=== PATIENT | male | born 1965 | race Caucasian/White ===

== ENCOUNTER → 2022-12-25 11:24 | Outpatient (BNVA) | payer MEDICARE, SELFPAY | PROVIDERS: Visit Provider Nurse Practitioner Family | DX: I10 Essential (primary) hypertension (principal) | CPT/HCPCS: 80053; 80061; 82607; 84443; 85025 ==

== ENCOUNTER → 2023-01-30 09:33 | Outpatient (BNVA) | payer MEDICARE, SELFPAY | PROVIDERS: Visit Provider Internal Medicine Cardiovascular Disease | DX: Z86.74 Personal history of sudden cardiac arrest (principal); I25.10 Atherosclerotic heart disease of native coronary artery without angina pectoris; I10 Essential (primary) hypertension; E78.5 Hyperlipidemia, unspecified; K21.9 Gastro-esophageal reflux disease without esophagitis; F17.210 Nicotine dependence, cigarettes, uncomplicated; R94.31 Abnormal electrocardiogram [ECG] [EKG] | CPT/HCPCS: 93005; 99204 ==

== ENCOUNTER 2023-02-14 12:41 | Outpatient (CLI) | payer MEDICARE, SELFPAY ==
--- NOTE | 2023-02-14 13:00 | USCV_ITS ---
Claudio Mota Age: 57 Gender: M : 1965 Exam Date: 02/14/2023 12:57 Ordering Phys: Billie Mehta MD [email or web address]) Technologist: Saloni Jack [place] [facility] [place]: Exertional shortness of breath BP: / HR: 73 Rhythm: Sinus Technical Quality: Adequate MEASUREMENTS (Male / Female) Normal Values 2D ECHO LV Diastolic Diameter PLAX 4.2 cm 4.2 - 5.9 / 3.9 - 5.3 cm LV Systolic Diameter PLAX 3.2 cm IVS Diastolic Thickness 1.4 cm 0.6 - 1.0 / 0.6 - 0.9 cm IVS Systolic Thickness 1.4 cm LVPW Diastolic Thickness 1.2 cm 0.6 - 1.0 / 0.6 - 0.9 cm LVPW Systolic Thickness 2.1 cm LVOT Diameter 2.1 cm LV Ejection Fraction 2D Teich 46.3 % LV Ejection Fraction MOD 2C 19.9 % LV Ejection Fraction 2C AL 22.3 % LA Diameter 2.7 cm LA Width 3.5 cm LA Height 4.5 cm RA Width 3.5 cm RA Height 3.8 cm Aorta at Sinotubular Diameter 3.0 cm IVC Diameter 1.1 cm M-MODE Aortic Annulus Diameter 2.6 cm LA Ao Ratio MM 1.0 MV E Point Septal Separation 0.8 cm DOPPLER AV Peak Velocity 127.0 cm/s LVOT Peak Velocity 70.0 cm/s AV Area Cont Eq vti 1.5 cm squared AV Area Cont Eq pk 1.9 cm squared MV E' Velocity 6.0 cm/s PV Peak Velocity 95.0 cm/s RV Acceleration Time 0.1 s RV Ejection Time 0.3 s RV AcT/ET 0.4 FINDINGS Left Ventricle Normal left ventricular cavity size. Moderately decreased left ventricular systolic function. Moderately decreased left ventricular systolic function. Left ventricular ejection fraction is estimated at 30-35 %. Global left ventricular hypokinesis. Abnormal septal motion consistent with pacemaker. Right Ventricle Normal right ventricular size and systolic function. Pacemaker wire visualized in the right ventricle. Right Atrium Normal right atrial size. Left Atrium Normal left atrial size. Mitral Valve Mildly thickened mitral valve. Mild bowing of anterior mitral leaflet. No mitral valve stenosis. Trace mitral valve regurgitation. Aortic Valve Structurally normal trileaflet aortic valve. No aortic valve stenosis. No aortic valve regurgitation. Tricuspid Valve Structurally normal tricuspid valve. Trace tricuspid valve regurgitation. Pulmonic Valve Pulmonic valve not well visualized. Pericardium No pericardial effusion. Aorta Normal size aortic root and proximal ascending aorta. IVC Normal IVC dimension with >50% respiratory change of the inferior vena cava. CONCLUSIONS 1. Normal left ventricular cavity size. Moderately decreased left ventricular systolic function. Moderately decreased left ventricular systolic function. Left ventricular ejection fraction is estimated at 30-35 %. Global left ventricular hypokinesis. 2. No prior similar studies to compare. Billie Mehta MD (Electronically Signed) Final Date: 22 February 2023 03:00 S
--- NOTE | 2023-02-14 13:45 | USCV_ITS ---
MotaClaudio Age: 57 Gender: M : 1965 Exam Date: 02/14/2023 13:24 Ordering Phys: Gerson Key Technologist: Franklin Chacon [place] [facility] [place]: leg pain RIGHT LEFT Brachial 546765.7 mmHg Brachial 130.00 mmHg 0 Pressure (mmHg) Waveform Pressure (mmHg) Waveform 145.00 MOBILE APPLICATION ENGINEER 76.00 123.00 DPA 91.00 0.95 Ankle/Brachial Index 0.70 102.00 Pre-Exercise Toe Pressure 76.00 0.78 Pre-Exercise Toe/Brachial Index 0.58 FINDINGS Resting ELYSSA 0.95 on the right side and 0.7 on the left Resting TBI of 0.78 on the right and 0.58 on the left CONCLUSIONS 1. Normal resting ELYSSA and TBI on the right side suggesting no significant arterial obstruction 2. Abnormal resting ELYSSA and TBI on the left side suggesting moderate peripheral artery disease Dr Gerson Key MD [facility] (Electronically Signed) Final Date: 19 February 2023 08:16 S
== END 2023-02-14 12:42 | disposition home or self-care (01) ==
PROVIDERS: PCP Nurse Practitioner Family; Visit Provider Internal Medicine Cardiovascular Disease
DX: I73.9 Peripheral vascular disease, unspecified (principal); R06.02 Shortness of breath
CPT/HCPCS: 93306; 93922

== ENCOUNTER 2023-03-12 06:53 | Outpatient (CLI) | payer MEDICARE, SELFPAY ==
--- NOTE | 2023-03-12 07:06 | ECG_ITS ---
[facility] Test Date: 2023-03-12 Pat Name: Claudio Mota Department: Room: Gender: Male Chaplain Resident: : 1965 Requested By: Billie Mehta Order Number: [id number] Mitch MD: Billie Mehta M.D. Interpretive Statements NAME OF STUDY: LEXISCAN SESTAMIBI STRESS TEST INDICATION: CP/LOW EF PROCEDURE: At the baseline, the blood pressure was 153/87 mmHg with a heart rate of 88 bpm. The electrocardiogram showed sinus rhythm, right axis deviation with intraventricular conduction delay (LBBB like morphology). The Lexiscan was infused over a period of 20 seconds. A total of 0.4 milligrams of Lexiscan was infused. The stress phase was continued for a total of 5 minutes. Heart rate at the end of the stress phase was 88 bpm with a blood pressure 152/92 mm of Hg. The EKG at the peak infusion revealed sinus rhythm with intraventricular conduction delay (LBBB like morphology). Sestamibi was injected 20 seconds after the Lexiscan infusion. Blood pressure at the end of the recovery phase was 155/89 mmHg with a heart rate of 93 bpm. Per minute. CONCLUSION: 1. Non diagnostic EKG changes with the LexiScan infusion due to intraventricular conduction delay (LBBB like morphology). 2. No LexiScan induced chest pain or cardiac arrhythmia. 3. Normal blood pressure and heart rate response. 4. Sestamibi/sestamibi perfusion scan pending; see separate report. Electronically Signed On 03-18-2023 16:48:10 CDT by Billie Mehta M.D. [id number]
--- NOTE | 2023-03-12 07:06 | NMCV_ITS ---
NM elder perf SPECT r/s* [id number] Claudio Mota Age: 57 Gender: M : 1965 Exam Date: 03/12/2023 07:06 Ordering Phys: Billie Mehta MD ([email or web address]) Technologist: MINE Shelton Exam Location: [facility] [place] Indications: CHEST PAIN, ATHEROSCLEROTIC HEART DISEASE, HISTORY OF SUDDEN CARDIAC ARREST STRESS TEST Please see separate stress test report in [facility] for full findings IMAGE PROTOCOL Rest/Stress 1 Lexiscan Day Radiopharmaceutical Dose (mCi) Administration Site Administered by Rest: Tc-99m 10.7 IV MINE Tay Sestamibi Stress:Tc-99m 32.6 IV MINE Tay Sestamibi Rest: 12-Mar-2023 30 Discovery 630 Stress: 12-Mar-2023 60 Discovery 630 0.4mg Lexiscan. Images obtained in supine and prone position. SPECT RESULTS Technical Quality: Excellent Raw Data Analysis: Normal Image Corrections: No attenuation or motion correction applied Summed Stress Score: 19 Summed Rest Score: 2 Summed Difference Score: 17 PERFUSION FINDINGS Large size perfusion abnormality of moderate severity of basal to mid inferolateral mid anterolateral apical lateral, mid to apical anterior and apical chaidez on stress images. FUNCTIONAL RESULTS (calculated via Gated SPECT) Stress Image LV EF (%): 42 Stress EDV (mL):242 TID: 1.11 Stress ESV (mL):141 FUNCTIONAL FINDINGS: The left ventricle is normal in size. Transient Ischemia Dilatation of 1.1. The left ventricular ejection fraction is mildly reduced with a value of 42%. There is global hypokinesis. Markedly increased end-diastolic and end-systolic volumes. IMPRESSIONS 1. Large sized perfusion abnormality of moderate severity of basal to mid inferolateral, mid anterolateral, apical lateral, mid to apical anterior and apical chaidez. 2. This likely represents large area of ischemia in left anterior descending/circumflex artery territory. 3. The left ventricular ejection fraction is mildly reduced with a value of 42%. There is global hypokinesis. 4. No prior similar studies to compare. Billie Mehta MD (Electronically Signed) Final Date: 18 March 2023 16:44 S
[2023-03-12 07:18] VITALS: BMI 29.3
[2023-03-12] MEDS: regadenoson 0.4 Mg/5 ml Syringe IVP (08:37)
[2023-03-12 08:56] VITALS: BP 152/92; PULSE 90
== END 2023-03-12 06:54 | disposition home or self-care (01) ==
LOC: CDL 06:54
PROVIDERS: PCP Nurse Practitioner Family; Visit Provider Internal Medicine Cardiovascular Disease
DX: R07.9 Chest pain, unspecified (principal); I50.9 Heart failure, unspecified; Z86.74 Personal history of sudden cardiac arrest
CPT/HCPCS: 36415; 78452; 93017; 96374; A9500; J2785

== ENCOUNTER → 2023-03-27 12:55 | Outpatient (BNVA) | payer MEDICARE, SELFPAY | PROVIDERS: PCP Nurse Practitioner Family; Visit Provider Nurse Practitioner Family | DX: I25.10 Atherosclerotic heart disease of native coronary artery without angina pectoris (principal); I10 Essential (primary) hypertension; F17.210 Nicotine dependence, cigarettes, uncomplicated | CPT/HCPCS: 99214 ==

== ENCOUNTER 2023-04-11 05:48 | Outpatient (CLI) | payer MEDICARE, SELFPAY ==
[2023-04-11] VITALS (16 sets, daily range): BP systolic 117–158; BP diastolic 62–101; PULSE 61–73; RESP 0–18; TEMP 36.6; O2SAT 98–100; BMI 29.5
--- NOTE | 2023-04-11 06:00 | XACV_ITS ---
Exam Room: 2 Ht: 175 cm Wt: 91 kg BSA: 2.12 m2 Gender: Male : 1965 Exam Priority: Routine Procedure(s): Procedure Description: Diagnostic procedure Procedure Description: Left Heart Catheterization Procedure Description: Left ventriculography Procedure Description: Aortogram Procedure Description: Venous Graft Catheterization Procedure Description: Coronary Angiography Diagnostic Cath Status: Elective Diagnostic Findings * INDICATION: Chest pain/ abnormal stress test. * Mid Circumflex: severe 90% stenosis, PASCUAL: 3 flow. OM is occluded and is supplied by collateral blood flow from the SVG to RCA. * SVG to RCA is patent. * Aortogram performed to assess PAD for possible support device insertion in future. Left common femoral artery has moderte disease. Ostial left SFA has a significant 70-80% stenosis. Right lower extremity has mild to moderate diffuse disease in common femoral artery and external iliac arteries. * Left Main: significant 80% stenosis, PASCUAL: 3 flow. * Mid Left Anterior Descending: obstructive 70% stenosis, PASCUAL: 3 flow. * Proximal Right Coronary Artery: total occlusion, PASCUAL: 0 flow. * Coronary angiography shows right dominance. PCI Indication: Other Conclusions 1. Severe left main stenosis. Severe stenosis of 2. mid left circumflex artery. 3. We will refer to 4. CT surgery team for possible CABG. 5. If not a surgical candidate, we can proceed with PCI of left main artery 6. and left circumflex artery.. 7. Patient has prior CABG. 8. Moderate left ventricular systolic dysfunction. Ejection fraction of 35%. Recommendations * Aggressive risk factor modification. * Close follow up with cardiology as outpatient. Interventional RX Recommendation: CABG Diagnostic RX Recommendation: CABG Anticoagulation: Heparin Ventriculography Ejection Fraction: 35.0 % Pressures Phase:Rest AO : 110 / 82 ( 95 ) @ 9:07:00 AM 126 / 88 ( 106 ) @ 9:19:00 AM 146 / 76 ( 103 ) @ 9:25:00 AM 139 / 67 ( 94 ) @ 9:27:00 AM LV : 148 / 1 / 17 @ 9:23:00 AM 140 / 3 / 19 @ 9:24:00 AM 141 / 4 / 19 @ 9:25:00 AM Valves Phase:DefaultPhase AV : 0.0 @ 8:43:21 AM 0.0 @ 8:43:21 AM AV Mean Gradient: 0.0 @ 8:43:21 AM Clinical Evaluation EBL: 5mL-10mL Procedural Details Procedure Consent Obtained. Admit Source: Out Patient. Pre-Procedure Time Out. Identified patient by full name and date of as verbalized by the patient/guarantor. Does the consent match the physician's order: Yes. Accurate & Complete Informed Consent: Yes. Inpatient/Outpatient History & Physical on Chart: Yes. If H&P is completed, is and addenduem needed: No; If yes, is the addendum complete: N/A. Visualize and Verify Site with Patient/Guarantor: N/A. Relevant Radiology Images available: N/A. The risks, benefits, and alternatives of sedation and/or procedure were discussed by physician. The patient agrees to continue. Procedure started. [facility] Clinical Fraility Score: 4: Vulnerable. 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 Chest Pain Symptom Assessment: Typical Angina Symptoms. Correct patient, site and procedure confirmed by cath team. PERRLA. Strong, equal hand forming press operator bilaterally. Lungs clear x 5 lobes. IV Site on Arrival: 20 gauge in the right anticubital. IV Fluids: 0.9% NaCl at KVO. 0 mL infused prior to hatchery laborer. Pre Procedural Pulses: bilateral posterior tibial was Doppled. Pre Procedural Pulses: bilateral dorsalis pedis was Doppled. Pre Procedural Pulses: bilateral radial was 3+. Oxygen started at 2liters/min via nasal canula. right groin was prepped with chloroprep then draped in the usual sterile fashion. bilateral groins was prepped with chloroprep then draped in the usual sterile fashion. Physician notified. Baseline sample Acquired. HR: 56 BPM. Physician arrived. Physician scrubbed in. Immediate Pre-Procedure Time Out. Correct Patient: Yes; Correct Procedure: Yes; Correct Site: Yes; Correct Patient Position: Yes; Correct Supplies: Yes; Dried Flammable Prep: Yes; Blood Products Available: N/A;. Lidocaine 1% infiltrated to the right radial. Arterial access obtained. A 6 [place] TIG catheter in over wire. Catheter removed over the exchange wire. A 5 [place] JL3.5 catheter in over wire. Multiple views taken of left coronary artery. Catheter removed over the exchange wire. A 5 [place] JR5 catheter in over wire. Catheter removed over the exchange wire. A 5 [place] AL1 catheter in over wire. SVG's to RCA visualized and patent. Catheter removed over the exchange wire. A 5 [place] Angled Pig catheter in over wire. EDP Sample taken: LV 148/1,17; HR: 66 BPM; SpO2: 100%. LV gram performed in MAK @ 10 mL/second for a total of 30 mL. EDP Sample taken: LV 140/3,19; HR: 62 BPM; SpO2: 100%. Pullback taken: LV 141/4,19; AO 146/76(103); Mean: 0mmHg, Peak to Peak: 0mmHg, SEP: 6sec/min; HR: 63 BPM; SpO2: 100%. Catherter redirected to the descending aorta. Aortogram performed in AP @ 10 mL/second for a total of 30 mL. Aortogram performed in AP @ 10 mL/second for a total of 30 mL in DSA. Catheter removed over the exchange wire. A 5 [place] Straight Pig catheter in over wire, 125 cm. Right common iliac selected and arteriogram with runoff performed @ 10 mL/sec for a total of 30 mL in DSA. Catheter removed over the exchange wire. Post Procedure: Pulses reassessed and unchanged. PERRLA. Strong, equal hand forming press operator bilaterally. No VTE prophylaxis required. Medication's Wasted: Lidocaine 1% = 9 mL. Medication's Wasted: Nitro = 49.8 mg. Medication's Wasted: Heparin = 3000 units. Total IV fluids: 75 mL. A TR Band was successful obtaining hemostatsis at the Right Radial artery insertion site. Post-op diagnosis: severe left main stenosis, severe left circumflex stenosis. Complications: none. Estimated blood loss: 5mL-10mL. Responsiveness - Normal response to verbal stimuli; alert and oriented, PERRLA. Airway - Unaffected, no intervention required; spontaneous ventilation. Circulation: W/N/L, pulses unchanged. Nausea/Vomiting: No. Procedure completed. Patient transferred by wheelchair to CPRU. Vital chart was stopped. Access Site Site: Right Radial artery Sheath Size: 6 Fr Hemostasis Method: TR Band Hemostasis Success: Successful Procedure Medications Start: 7:58 AM Stop: 7:58 AM Medication: Versed Amount: 1 mg Route: I.V. Start: 7:58 AM Stop: 7:58 AM Medication: Fentanyl Amount: 50 mcg Route: I.V. Start: 8:04 AM Stop: 8:04 AM Medication: Nitrogylcerin Amount: 200 mcg Route: I.A. Start: 8:06 AM Stop: 8:06 AM Medication: Heparin Amount: 3000 units Route: I.V. Start: 8:12 AM Stop: 8:12 AM Medication: Versed Amount: 1 mg Route: I.V. Start: 8:12 AM Stop: 8:12 AM Medication: Fentanyl Amount: 50 mcg Route: I.V. I, the attending physician, have reviewed and verified all procedure medications. Yes, all medications given per verbal order History/Risk Factors Hypertension: Yes Dyslipidemia: Yes Peripheral Arterial Disease (PAD): No Myocardial Infarction (MN): Yes Obesity: No Tobacco Use: Current/Recent(w/in 1 year) Prior Interventions PCI: Yes CABG: Yes Valve Surgery: No Report Signatures Finalized by William Ryder MD on 04/11/2023 12:38 PM
[2023-04-11 06:16] LABS: Basophils # 0.2 10^3/uL (0.0-0.1); Basophils % 1.7 %; Eosinophils # 0.5 10^3/uL (0.0-0.8); Eosinophils % 5.2 %; Hematocrit 47.2 % (37-53); Lymphocytes # 4.1 10^3/uL (0.8-4.8); Lymphocytes % 40.8 %; Mean Corpuscular HGB Conc 34.3 g/dL (30-55); Mean Corpuscular Hemoglobin 32.1 pg (27-33); Mean Corpuscular Volume 93.5 fl (82-101); Mean Platelet Volume 11.8 fL (7.4-10.4); Monocytes # 1.2 10^3/uL (0.2-0.9); Monocytes % 12.1 %; Neutrophils % 39.9 %; Nucleated Red Blood Cells % 0 %; Platelet Count 157 10^3/cmm (157-399); Red Blood Count 5.05 10^6/uL (3.85-5.65); Red Cell Distribution Width 11.9 % (12.1-15.1); White Blood Count 10.01 10^3/uL (3.29-11.43)
[2023-04-11] MEDS: diphenhydrAMINE 50 mg Capsule PO (06:24)
[2023-04-11 06:34] LABS: Blood Urea Nitrogen 10 mg/dL (6-20); Calcium 9.3 mg/dL (8.5-10.5); Carbon Dioxide 28 mmol/L (22-29); Chloride 102 mmol/L (98-107); Glomerular Filtration Rate 87.6 mL/min (90-130); Glucose 100 mg/dL (65-115); INR 0.89 (0.8-1.2); Osmolality Calculated 285 mOsm/kg (285-295); Sodium 138 mmol/L (136-145)
[2023-04-11 06:39] LABS: Anion Gap 12.4 (5-19); Potassium 4.4 mmol/L (3.5-5.1)
--- NOTE | 2023-04-11 07:54 | P.HPUD_ITS ---
Surgery/Procedure H&P Update DATE OF PROCEDURE: April 11, 2023 DATE H&P PERFORMED: 03/27/23 H&P UPDATE INFORMATION: I have reviewed H&P completed within last 30 days, I have examined patient prior to procedure and No changes to prior documentation PREOP DIAGNOSIS: Chest pain/abnormal stress test PRIMARY INDICATION FOR PROCEDURE: Chest pain/abnormal stress test PLANNED PROCEDURE: Operation Date: 04/11/23 07:00 Proposed Procedures p [facility] w /w/o 33839,I25.10,R94.39(Left) - William Ryder M.D Possible percutaneous coronary intervention PATIENT REASSESSED PRIOR TO SEDATION, WITH NO CHANGE NOTED: Yes PHYSICAL EXAM: alert, oriented x 3, clear to auscultation bilaterally and regular rate & rhythm AIRWAY EVAL/ANESTHESIA PLAN: normal airway, ASA III, Local Anesthesia, Risks, benefits & alternatives of sedation and/or procedure discussed and Patient agrees to continue as planned ADDITIONAL INFORMATION: Moderate sedation
--- NOTE | 2023-04-11 08:45 | PC.NURSE ---
Post Cath Fluid Clarification Dr. Ryder at bedside speaking with family. Verbal orders for NS to be administered at 75ml/hr until discharge home. Infusion continued from NS bag obtained in director of cardiac cath lab.
--- NOTE | 2023-04-11 12:55 | PC.NURSE ---
TR BAND 0945 - 2ml air removed from Right radial TR band, site asymptomatic. No signs of bleeding or hematoma. Radial pulse palpable. 1010 - 2ml air removed from right radial TR band, site asymptomatic . No signs of bleeding or hematoma. Radial pulse palpable. 1030 - 3ml air removed from right radial TR band, site asymptomatic . No signs of bleeding or hematoma. Radial pulse palpable. 1045 - 3 ml air removed from right radial TR band, site asymptomatic . No signs of bleeding or hematoma. Radial pulse palpable. 1105 - 3 ml air removed from right radial TR band, site asymptomatic . No signs of bleeding or hematoma. Radial pulse palpable. 1115 - 2 ml air removed from right radial TR band, site asymptomatic . No signs of bleeding or hematoma. Radial pulse palpable. 1130 - 2 ml air removed from right radial TR band, site asymptomatic . No signs of bleeding or hematoma. Radial pulse palpable.
--- NOTE | 2023-04-11 12:59 | PC.NURSE ---
Patient discharged home. Printed discharged instructions received and went over verbally. Patient and verbalized understanding of instructions. Right radial site dressing clean dry and intact. No signs of bleeding or hematoma.
== END 2023-04-11 12:55 | disposition home or self-care (01) ==
PROVIDERS: PCP Nurse Practitioner Family; Visit Provider Internal Medicine
DX: I25.10 Atherosclerotic heart disease of native coronary artery without angina pectoris (principal); Z79.82 Long term (current) use of aspirin; K21.9 Gastro-esophageal reflux disease without esophagitis; E78.5 Hyperlipidemia, unspecified; I10 Essential (primary) hypertension; F17.210 Nicotine dependence, cigarettes, uncomplicated
CPT/HCPCS: 36415; 75625; 80048; 85025; 85610; 93459; 96361; 96365; 96367; 99152; 99153; C1769; C1887; C1894; J1644; J2250; J3010; J3490; J7030; Q0163; Q9967

== ENCOUNTER → 2023-04-25 13:17 | Outpatient (BNVA) | payer MEDICARE, SELFPAY | PROVIDERS: PCP Nurse Practitioner Family; Visit Provider Nurse Practitioner Family | DX: I25.10 Atherosclerotic heart disease of native coronary artery without angina pectoris (principal); I10 Essential (primary) hypertension; R94.39 Abnormal result of other cardiovascular function study; Z86.74 Personal history of sudden cardiac arrest; Z09 Encounter for follow-up examination after completed treatment for conditions other than malignant neoplasm; F17.210 Nicotine dependence, cigarettes, uncomplicated | CPT/HCPCS: 36415; 80048; 85025; 85610; 99214 ==

== ENCOUNTER 2023-05-16 08:47 | Outpatient (CLI) | payer MEDICARE, SELFPAY ==
[2023-05-16] VITALS (36 sets, daily range): BP systolic 132–160; BP diastolic 83–98; PULSE 61–90; RESP 6–16; TEMP 36.8; O2SAT 92–100; BMI 29.5
--- NOTE | 2023-05-16 09:00 | XACV_ITS ---
Exam Room: [facility] Ht: 175 cm Wt: 91 kg BSA: 2.12 m2 Gender: Male : 1965 Any Known Allergies: Other Exam Priority: Routine Indication(s): - Progressive angina Procedure(s): Procedure Description: Diagnostic procedure Procedure Description: PCI procedure Procedure Description: Left Heart Catheterization Procedure Description: Coronary IVUS Procedure Description: Drug Eluting Coronary Stent Procedure Description: PTCA Procedure Description: Miscellaneous Procedure Description: ACT Procedure Description: Coronary Angiography Diagnostic Cath Status: Elective Diagnostic Findings * INDICATION: Patient underwent coronary angiogram last month that showed patent SVG to RCA, severe left circumflex artery stenosis, moderate to severe mid LAD stenosis and significant left main artery stenosis. He was sent to [place] for redo CABG evaluation. He was considered high risk for second CABG surgery. Plan for PCI of left circumflex artery. We will perform IVUS guided PCI of left main artery. Plan for IVUS of the mid LAD stenosis and decision about intervention based on that. Patient has PAD and prior complication with PCI done several years ago at outside hospital. I had a clear discussion with patient and family about high risk nature of the procedure and the risks associated with it. They understand the risks and benefits and want to proceed. Patient already loaded with aspirin and Plavix. * Right Coronary Artery not injected. SVG to RCA not injected. * This is a staged interventional procedure. For full diagnostic report, please refer to procedure report from 04/11/2023. * Left Main: significant 80% stenosis, PASCUAL: 3 flow. * Mid Left Anterior Descending: obstructive 70% stenosis, PASCUAL: 3 flow. * Mid Circumflex to Mid Circumflex: critical 95% stenosis, PASCUAL: 3 flow. * Coronary angiography shows right dominance. PCI Status: Elective PCI Indication: Other Interventional Findings * PROCEDURE DETAIL: Initally we attempted to perform PCI via radial access but because of anatomy, had difficulty with selective engagement of the guide. Access was then switched to right common femoral artery. We used XB 3.5 guide catheter to engage hussain left main artery. 0.014 runthrough guidewire was used to cross the LAD stenosis. IVUS was performed that showed significant stenosis of the mid LAD (could not completely cross the lesion). MLA of the initial part of lesion till where IVUS catheter was advanced was 3.8mm2. MLA of the left main artery was 5.1mm2.We then advanced the runthrough guidewire to left circumflex artery and crossed the critical stenosis. We predilated the stenosis with 2.5x12mm semicompliant balloon. This was followed by placement of 2.04l47fc Resolute joe MARIMAR. We then turned our attention to mid LAD stenosis. We predilated the lesion with 2.5x12mm semi compliant balloon. This was followed by predilation with 3.0 x 12 mm NC balloon. Advancing stent was still difficult and guide liner was used to put a stent in the mid LAD. We placed a 3.0x18mm Resolute joe MARIMAR in the mid LAD. We then predilated the left main stenosis with 3.0x12mm NC balloon. This was followed by placement of 3.0x15 resolute joe MARIMAR. we then performed IVUS that showed an area of underexpansion. This was expanded well with 3.75x8mm NC balloon. At this time, final angiogram was performed that showed TIMI3 flow,no residual stenosis. Guidewire and guidecatheter were removed. 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 * Left Main: 80% stenosis treated with a MDT NC EUPHORA RX [id number] BALLOON, MDT R JOE 3.0X15 MARIMAR, and MDT NC EUPHORA RX [id number] BALLOON. 0% residual stenosis, PASCUAL: 3 flow. * Mid Left Anterior Descendin% stenosis treated with a AB TREK 2.50X12 RX BALLOON, MDT NC EUPHORA RX 3.66X67DA BALLOON, and MDT R JOE 3.0X18 MARIMAR. 0% residual stenosis, PASCUAL: 3 flow. * Mid Circumflex to Mid Circumflex: 95% stenosis treated with a AB TREK 2.50X12 RX BALLOON, and MDT R JOE 2.75X15 MARIMAR. 0% residual stenosis, PASCUAL: 3 flow. Conclusions 1. Severe multivessel coronary artery disease. After CT surgery evaluation and heart team discussion, decision made to proceed with multivessel PCI including LAD, Left main artery and left circumflex artery. 2. Severe left main artery stenosis s/p PCI with 1 stent. Severe mid LAD stenosis s/p PCI with 1 stent. Critical mid left circumflex artery stenosis s/p successful revascularization with 1 stent. 3. Patient has prior CABG. 4. Left Main was treated with a Balloon, Drug Eluting Stent, and Balloon. 5. Mid Left Anterior Descending was treated with a Balloon, Balloon, and Drug Eluting Stent. 6. Mid Circumflex to Mid Circumflex was treated with a Balloon, and Drug Eluting Stent. Recommendations * Dual antiplatelet therapy at least 1 year. * High intensity statin therapy. * Outpatient cardiology follow up in 1 week. Interventional RX Recommendation: PCI w/o planned CABG Diagnostic RX Recommendation: PCI w/o planned CABG Anticoagulation: Heparin Pressures Phase:Rest AO : 148 / 81 ( 106 ) @ 11:36:00 AM 150 / 83 ( 107 ) @ 11:36:00 AM 105 / 67 ( 84 ) @ 11:48:00 AM 120 / 87 ( 100 ) @ 12:08:00 PM 86 / 48 ( 64 ) @ 12:27:00 PM 130 / 96 ( 113 ) @ 12:27:00 PM 150 / 97 ( 120 ) @ 12:28:00 PM 279 / 153 ( 111 ) @ 12:30:00 PM 126 / 84 ( 104 ) @ 12:30:00 PM 99 / 69 ( 52 ) @ 12:35:00 PM 85 / 59 ( 71 ) @ 12:36:00 PM 111 / 80 ( 95 ) @ 12:36:00 PM 124 / 94 ( 109 ) @ 12:36:00 PM 138 / 91 ( 112 ) @ 12:37:00 PM LV : 157 / 5 / 17 @ 11:36:00 AM 156 / 6 / 17 @ 11:36:00 AM Valves Phase:DefaultPhase AV : 8.0 @ 8:41:05 AM 8.0 @ 8:41:05 AM AV Mean Gradient: 11.0 @ 8:41:05 AM Clinical Evaluation EBL: 5mL-10mL Procedural Details Procedure Consent Obtained. Admit Source: Out Patient. Current Diagnosis : Unstable angina. [facility] Clinical Fraility Score: 4: Vulnerable. Metalizing Supervisor Indications: Worsening Angina. Chest Pain Symptom Assessment: Typical Angina Symptoms. Cardiovascular Instability: No, stable. Pre-Procedure Time Out. Identified patient by full name and date of as verbalized by the patient/guarantor. Does the consent match the physician's order: Yes. Accurate & Complete Informed Consent: Yes. Inpatient/Outpatient History & Physical on Chart: Yes. If H&P is completed, is and addenduem needed: No; If yes, is the addendum complete: N/A. Visualize and Verify Site with Patient/Guarantor: N/A. Relevant Radiology Images available: Yes. The risks, benefits, and alternatives of sedation and/or procedure were discussed by physician. The patient agrees to continue. Procedure started. Correct patient, site and procedure confirmed by cath team. Current diagnosis: Unstable angina; worsening angina; multiple vessel cad. PERRLA. Strong, equal hand mate first bilaterally. Lungs clear x 5 lobes. IV Site on Arrival: 20 gauge in the left anticubital. IV Fluids: 0.9% NaCl at KVO. 0 mL infused prior to earth science laboratory technician. Pre Procedural Pulses: bilateral posterior tibial was Doppled. Pre Procedural Pulses: bilateral dorsalis pedis was Doppled. Pre Procedural Pulses: bilateral radial was 3+. Oxygen started at 3liters/min via nasal canula. right groin was prepped with chloroprep then draped in the usual sterile fashion. right radial was prepped with chloroprep then draped in the usual sterile fashion. Physician notified. Baseline sample Acquired. HR: 57 BPM. Family updated by MD prior to arrival. Physician arrived. Physician scrubbed in. Immediate Pre-Procedure Time Out. Correct Patient: Yes; Correct Procedure: Yes; Correct Site: Yes; Correct Patient Position: Yes; Correct Supplies: Yes; Dried Flammable Prep: Yes; Blood Products Available: N/A;. Lidocaine 1% infiltrated to the right radial. Ultrasound used for guided arterial access by MD. Arterial access obtained with micropuncture set. Lidocaine 1% infiltrated to the right radial. Arterial access obtained. A 6 estonian Angled Pig catheter in over the exchange wire. EDP Sample taken: LV 157/5,17; HR: 63 BPM; SpO2: 100%. Pullback taken: LV 156/6,17; AO 148/81(106); Mean: 11mmHg, Peak to Peak: 8mmHg, SEP: 19sec/min; HR: 63 BPM; SpO2: 100%. Catheter removed over the exchange wire. 6 estonian XB 3.5 guide catheter was inserted over the wire. Unable to seat the guide in the LCS. Guide catheter out over the wire. Sheath upsized to a 6 Fr. A new 6 fr XB 3.5 GUIDE inserted through the femoral access. Guide seated in the LCS. Multiple views taken of left coronary artery. Runthrough guidewire was advanced through the guide catheter to lesion in the mid LAD. IVUS catheter inserted over the runthrough wire. IVUS mesurments of LAD and LEFT MAIN obtained. IVUS catheter out. Runthrough wire redirected down the Left Circumflex artery. Guidewire advanced across lesion. Inflation number : 1 A AB TREK 2.50X12 RX BALLOON was prepped and advanced across the Mid CX , then inflated to 8 DRAKE for 0:06 seconds. Inflation number: 2 The AB TREK 2.50X12 RX BALLOON was reinflated across the Mid CX, to 12 DRAKE for 0:10 seconds. Balloon out over the wire. Results checked. Inflation Number : 3 A [place] JOE 2.75X15 MARIMAR -Lot Number# [id number] was prepped and advanced across the Mid CX. The stent was deployed at 12 DRAKE for 0:16 seconds. EXP 03/23/2024. Results checked. Stent balloon out over the wire. Runthrough wire redirected down the LAD. Guidewire advanced across lesion. ACT drawn. Results Out of range high seconds. Therapeutic limits - pre-heparin administration 90-150 seconds and monitoring heparin during a vascular procedure >250 seconds. Inflation number: 1 The AB TREK 2.50X12 RX BALLOON was reinflated across the Mid LAD, to 8 DRAKE for 0:09 seconds. Inflation number: 2 The AB TREK 2.50X12 RX BALLOON was reinflated across the Mid LAD, to 10 DRAKE for 0:19 seconds. Results checked. Balloon out over the wire. Inflation number : 3 A MDT NC EUPHORA RX 3.76T00FP BALLOON was prepped and advanced across the Mid LAD , then inflated to 12 DRAKE for 0:07 seconds. Inflation number: 4 The MDT NC EUPHORA RX 3.28A56FY BALLOON was reinflated across the Mid LAD, to 12 DRAKE for 0:13 seconds. Balloon out over the wire. 3.0 x 18 MARIMAR stent inserted. Unable to cross. Removed intact over the wire. 2ND runthrough wire inserted as crossing support. 2nd guidwire advanced across the lesion in the mid LAD. 3.0 x 18 MARIMAR stent inserted. Unable to cross. Removed intact over the wire. 2nd runthrough out over the wire. 6 FR guidliner inserted over the wire. Inflation Number : 5 A MDT R JOE 3.0X18 MARIMAR -Lot Number# [id number] was prepped and advanced across the Mid LAD. The stent was deployed at 12 DRAKE for 0:17 seconds. EXP: 01/07/26. Results checked. Stent balloon out over the wire. Guidliner out. Results checked. ACT drawn. Results Out of range high seconds. Therapeutic limits - pre-heparin administration 90-150 seconds and monitoring heparin during a vascular procedure >250 seconds. Inflation number: 1 The MDT NC EUPHORA RX 3.29K52MS BALLOON was reinflated across the LMCA, to 12 DRAKE for 0:16 seconds. Balloon out over the wire. Inflation Number : 2 A MDT R JOE 3.0X15 MARIMAR -Lot Number# [id number] was prepped and advanced across the LMCA. The stent was deployed at 12 DRAKE for 0:17 seconds. EXP 03/22/2024. Stent balloon out over the wire. Results checked. Results checked. IVUS catheter inserted over the wire. IVUS of lad and left main performed. Inflation number : 3 A MDT NC EUPHORA RX 3.57F55DS BALLOON was prepped and advanced across the LMCA , then inflated to 12 DRAKE for 0:14 seconds. Inflation number: 4 The MDT NC EUPHORA RX 3.89Y49TM BALLOON was reinflated across the LMCA, to 12 DRAKE for 0:12 seconds. Inflation number: 5 The MDT NC EUPHORA RX 3.90Z04HP BALLOON was reinflated across the LMCA, to 12 DRAKE for 0:10 seconds. Balloon out. Results checked. Wire out. Guide catheter removed over the wire. A Right femoral angiogram was performed to determine safe placement of closure device. Physician review of films. ACT drawn. Results 331 seconds. Therapeutic limits - pre-heparin administration 90-150 seconds and monitoring heparin during a vascular procedure >250 seconds. Physician scrubbed out. A TR Band was unsuccessful obtaining hemostatsis at the Right Radial artery insertion site. A Suture was successful obtaining hemostatsis at the Right Femoral artery insertion site. TR band placed. Hemostasis obtained. Sheath(s) sutured into position with 2-0 silk and sterile 4x4's and Op-site applied over the site. No oozing or signs and symptoms of hematoma noted. Femoral Arterial sheath flushed and connected to tranducer and pressure bag with heparinized saline. Post Procedure: Pulses reassessed and unchanged. PERRLA. Strong, equal hand mate first bilaterally. No VTE prophylaxis required. Medication waste: Lidocaine- 4 ml Nitro- 49.8 mg Versed- 1 mg Fentanyl- 25 mcg. Vital chart was stopped. Total IV fluids: 105 mL. Fluoro: 22:07. Contrast type used: Omnipaque 300 mgI/mL, 500 mL bottle. Omnipaque 299 ml. Post-op diagnosis: SEVERE MULTI VESSEL CORONARY ARTERY DISEASE; POST PCI OF MID LAD, MID CIRCUMFLEX AND LEFT MAIN CORONARY ARTERY. Complications: None. Estimated blood loss: 5mL-10mL. Responsiveness - Normal response to verbal stimuli; alert and oriented, PERRLA. Airway - Unaffected, no intervention required; spontaneous ventilation. Circulation: W/N/L, pulses unchanged. Nausea/Vomiting: No. Procedure completed. Patient transferred by bed to ICU. Access Site Site: Right Femoral artery Sheath Size: 5 Fr Hemostasis Method: Suture Hemostasis Success: Successful Site: Right Radial artery Sheath Size: 6 Fr Hemostasis Method: TR Band Hemostasis Success: Unsuccessful Procedure Medications Start: 10:22 AM Stop: 10:22 AM Medication: Versed Amount: 1 mg Route: I.V. Start: 10:22 AM Stop: 10:22 AM Medication: Fentanyl Amount: 50 mcg Route: I.V. Start: 10:30 AM Stop: 10:30 AM Medication: Versed Amount: 1 mg Route: I.V. Start: 10:30 AM Stop: 10:30 AM Medication: Fentanyl Amount: 50 mcg Route: I.V. Start: 10:32 AM Stop: 10:32 AM Medication: Nitrogylcerin Amount: 200 mcg Route: I.A. Start: 10:33 AM Stop: 10:33 AM Medication: Heparin Amount: 5000 units Route: I.V. Start: 10:35 AM Stop: 10:35 AM Medication: Versed Amount: 1 mg Route: I.V. Start: 10:35 AM Stop: 10:35 AM Medication: Fentanyl Amount: 50 mcg Route: I.V. Start: 10:40 AM Stop: 10:40 AM Medication: Versed Amount: 1 mg Route: I.V. Start: 10:47 AM Stop: 10:47 AM Medication: Heparin Amount: 4000 units Route: I.V. Start: 11:09 AM Stop: 11:09 AM Medication: Versed 1 mg and Fentanyl 25 mcg Amount: 1 Route: I.V. Start: 11:19 AM Stop: 11:19 AM Medication: Heparin Amount: 1000 units Route: I.V. Start: 11:44 AM Stop: 11:44 AM Medication: Plavix Amount: 300 mg Route: P.O. I, the attending physician, have reviewed and verified all procedure medications. Yes, all medications given per verbal order History/Risk Factors Hypertension: Yes Dyslipidemia: Yes Peripheral Arterial Disease (PAD): Yes Myocardial Infarction ([place]): No Obesity: Yes Renal Disease: No Tobacco Use: Current/Recent(w/in 1 year) Prior Interventions PCI: Yes CABG: Yes Valve Surgery: No Report Signatures Finalized by William Ryder MD on 05/23/2023 10:25 AM
[2023-05-16 09:32] LABS: Basophils # 0.1 10^3/uL (0.0-0.1); Basophils % 1.5 %; Eosinophils # 0.3 10^3/uL (0.0-0.8); Eosinophils % 4.3 %; Hematocrit 46.8 % (37-53); Lymphocytes # 3.1 10^3/uL (0.8-4.8); Lymphocytes % 39.1 %; Mean Corpuscular HGB Conc 34.2 g/dL (30-55); Mean Corpuscular Hemoglobin 31.5 pg (27-33); Mean Corpuscular Volume 92.1 fl (82-101); Mean Platelet Volume 10.8 fL (7.4-10.4); Monocytes # 0.9 10^3/uL (0.2-0.9); Monocytes % 10.9 %; Neutrophils # 3.46 10^3/uL (1.8-7.7); Neutrophils % 43.8 %; Nucleated Red Blood Cells % 0 %; Platelet Count 168 10^3/cmm (157-399); Red Blood Count 5.08 10^6/uL (3.85-5.65); Red Cell Distribution Width 11.9 % (12.1-15.1)
[2023-05-16] MEDS: diphenhydrAMINE 50 mg Capsule PO (09:40)
--- NOTE | 2023-05-16 09:42 | W.PM.OPSUD ---
Surgery/Procedure H&P Update DATE OF PROCEDURE: May 16, 2023 DATE H&P PERFORMED: 04/25/23 H&P UPDATE INFORMATION: I have reviewed H&P completed within last 30 days, I have examined patient prior to procedure and Changes to prior documentation as noted here CHANGES TO PREVIOUS DOCUMENTATION: Patient underwent coronary angiogram last month that showed patent SVG to RCA, severe left circumflex artery stenosis, moderate to severe mid LAD stenosis and significant left main artery stenosis. He was sent to [place] for redo CABG evaluation. He was considered high risk for second CABG surgery. Plan for PCI of left circumflex artery. We will perform IVUS of left main artery to assess stenosis and possible PCI of left main artery. Patient has PAD and prior complication with PCI done several years ago at outside hospital. I had a clear discussion with patient and family about high risk nature of the procedure and the risks associated with it. They understand the risks and benefits and want to proceed. Patient already loaded with aspirin and Plavix PREOP DIAGNOSIS: Severe multivessel coronary artery disease PRIMARY INDICATION FOR PROCEDURE: Severe multivessel coronary artery disease PLANNED PROCEDURE: Operation Date: 05/16/23 10:00 Proposed Procedures p [facility] 19457,R07.9,I25.10(Not Applicable) - William Ryder M.D Percutaneous coronary intervention of the left circumflex artery. Possible PCI of left main artery/LAD. PATIENT REASSESSED PRIOR TO SEDATION, WITH NO CHANGE NOTED: Yes PHYSICAL EXAM: alert, oriented x 3, clear to auscultation bilaterally and regular rate & rhythm AIRWAY EVAL/ANESTHESIA PLAN: normal airway, ASA IV, Local Anesthesia, Risks, benefits & alternatives of sedation and/or procedure discussed and Patient agrees to continue as planned ADDITIONAL INFORMATION: Moderate sedation
[2023-05-16 10:06] LABS: Anion Gap 14.6 (5-19); Blood Urea Nitrogen 11 mg/dL (6-20); Calcium 9.9 mg/dL (8.5-10.5); Carbon Dioxide 28 mmol/L (22-29); Chloride 101 mmol/L (98-107); Glomerular Filtration Rate 87.3 mL/min (90-130); Glucose 118 mg/dL (65-115); Osmolality Calculated 288 mOsm/kg (285-295); Potassium 4.6 mmol/L (3.5-5.1); Sodium 139 mmol/L (136-145)
--- NOTE | 2023-05-16 12:40 | PC.NURSE ---
All personal items sent home with .
[2023-05-16 15:47] LABS: Partial Thromboplastin Time 26.4 SECONDS (23.9-36.7)
--- NOTE | 2023-05-16 16:05 | PC.NURSE ---
Right TR band removed with no complications, dressing applied, pulses still present. Patient states he has had numbness and tingling in his right hand and arm for years and feels nothing out of ordinary. Right femoral sheath removed with no complications. Dressing applied, pulses still present, no drainage or hemotoma present at this time.
[2023-05-16] MEDS: hyDRALAzine 20 mg/mL INJ 1 mL 5 MG IVP (16:14)
[2023-05-16] MEDS: fentaNYL 50 mcg/mL INJ 2mL IVP (16:17)
[2023-05-16] MEDS: ALPRAZolam 0.5 mg Tablet 0.25 MG PO (18:05)
--- NOTE | 2023-05-16 18:24 | PC.NURSE ---
Patient became very agitated and verbally aggressive towards at while attempting to get out of bed. Patient educated on risks of ambulating too soon after a sheath removal. Patient agreed to take PRN xanax and stay in bed for the remaining time.
[2023-05-17] VITALS (52 sets, daily range): BP systolic 120–143; BP diastolic 85–103; PULSE 67–93; RESP 13–38; TEMP 37; O2SAT 91–100
[2023-05-17 04:24] LABS: Basophils # 0.1 10^3/uL (0.0-0.1); Basophils % 1.3 %; Eosinophils # 0.3 10^3/uL (0.0-0.8); Hematocrit 45.1 % (37-53); Lymphocytes # 3.3 10^3/uL (0.8-4.8); Mean Corpuscular HGB Conc 33.9 g/dL (30-55); Mean Corpuscular Volume 91.5 fl (82-101); Monocytes % 10.9 %; Neutrophils # 4.46 10^3/uL (1.8-7.7); Neutrophils % 48.6 %; Nucleated Red Blood Cells % 0 %; Platelet Count 147 10^3/cmm (157-399); Red Blood Count 4.93 10^6/uL (3.85-5.65); Red Cell Distribution Width 11.9 % (12.1-15.1); White Blood Count 9.19 10^3/uL (3.29-11.43)
[2023-05-17 04:49] LABS: Anion Gap 16.3 (5-19); Blood Urea Nitrogen 12 mg/dL (6-20); Calcium 9.4 mg/dL (8.5-10.5); Carbon Dioxide 27 mmol/L (22-29); Chloride 102 mmol/L (98-107); Glomerular Filtration Rate 77.3 mL/min (90-130); Glucose 87 mg/dL (65-115); Osmolality Calculated 291 mOsm/kg (285-295); Potassium 4.3 mmol/L (3.5-5.1); Sodium 141 mmol/L (136-145)
--- NOTE | 2023-05-17 08:51 | PM.DCS ---
Discharge Providers Date of Admission: 05/16/2023 Date of Discharge: May 17, 2023 Attending Provider at Admission: William Ryder MD Attending Provider at Discharge: William Ryder M.D Primary Care Provider: CITLALY Hassan Reason for Visit Reason for Visit: R07.9, I25.10 Brief History: 58-year-old man with past medical history of CAD presented for outpatient staged PCI of left main artery, left circumflex artery and IVUS and possible PCI of LAD. Hospital Course Hospital Course He underwent successful revascularization of left main with 1 stent, left circumflex artery with 1 stent and mid LAD with 1 stent. Overnight stayed stable and was discharged home in a stable condition on dual antiplatelet therapy. Physical Exam Narrative: GENERAL: Patient is alert, awake and oriented x3. [] NECK: No jugular vein distension. [] HEENT: No cyanosis. No icterus. No pallor. [] HEART: Regular S1 and S2. No murmur, rub or gallop. [] LUNGS: Clear to auscultate bilaterally. [] CENTRAL NERVOUS SYSTEM: Grossly nonfocal. [] EXTREMITIES: Lower extremities with 1+ edema bilaterally. 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 Routine Exams 05/16/23 09:00 Taken Laboratory Results WBC 9.19 10^3/uL (3.29-11.43) 05/17/23 03:28 RBC 4.93 10^6/uL (3.85-5.65) 05/17/23 03:28 Hgb 15.30 g/dL (11.27-16.99) 05/17/23 03:28 Hct 45.1 % (37-53) 05/17/23 03:28 MCV 91.5 fl (82-101) 05/17/23 03:28 MCH 31.0 pg (27-33) 05/17/23 03:28 MCHC 33.9 g/dL (30-55) 05/17/23 03:28 RDW 11.9 % (12.1-15.1) L 05/17/23 03:28 Plt Count 147 10^3/cmm (157-399) L 05/17/23 03:28 MPV 11.0 fL (7.4-10.4) H 05/17/23 03:28 Neut % (Auto) 48.6 % 05/17/23 03:28 Lymph % (Auto) 36.0 % 05/17/23 03:28 [place] % (Auto) 10.9 % 05/17/23 03:28 Eos % (Auto) 3.0 % 05/17/23 03:28 Baso % (Auto) 1.3 % 05/17/23 03:28 Neut # (Auto) 4.46 10^3/uL (1.8-7.7) 05/17/23 03:28 Lymph # (Auto) 3.3 10^3/uL (0.8-4.8) 05/17/23 03:28 [place] # (Auto) 1.0 10^3/uL (0.2-0.9) H 05/17/23 03:28 Eos # (Auto) 0.3 10^3/uL (0.0-0.8) 05/17/23 03:28 Baso # (Auto) 0.1 10^3/uL (0.0-0.1) 05/17/23 03:28 Nucleated RBC % (auto) 0 % 05/17/23 03:28 Nucleated RBCs # 0.0 /100WBC 05/17/23 03:28 APTT 26.4 SECONDS (23.9-36.7) 05/16/23 15:25 Sodium 141 mmol/L (136-145) 05/17/23 03:28 Potassium 4.3 mmol/L (3.5-5.1) 05/17/23 03:28 Chloride 102 mmol/L (98-107) 05/17/23 03:28 Carbon Dioxide 27 mmol/L (22-29) 05/17/23 03:28 Anion Gap 16.3 (5-19) 05/17/23 03:28 BUN 12 mg/dL (6-20) 05/17/23 03:28 Creatinine 1.0 mg/dL (0.7-1.2) 05/17/23 03:28 GFR Calculation 77.3 mL/min (90-130) L 05/17/23 03:28 Glucose 87 mg/dL (65-115) 05/17/23 03:28 Calculated Osmolality 291 mOsm/kg (285-295) 05/17/23 03:28 Calcium 9.4 mg/dL (8.5-10.5) 05/17/23 03:28 Vitals Last Vital Signs Temp 98.3 F 05/16/23 09:54 Pulse 68 05/17/23 08:29 Resp 12 05/16/23 17:03 BP 138/98 05/16/23 13:10 Pulse Ox 96 05/17/23 08:29 O2 Del Method Room Air 05/17/23 08:29 O2 Flow Rate 2 05/16/23 17:03 Discharge Plan Discharge Patient Disposition: Home Prescriptions: Continued nitroglycerin 0.4 mg tablet, sublingual 0.4 mg sublingual Q5M PRN (Reason: chest pain) Qty: 30 3RF Rx Instructions: do not exceed 3 doses per episode aspirin [Enteric Coated Aspirin] 81 mg tablet,delayed release (DR/EC) 81 mg PO DAILY ascorbic acid (vitamin C) 1,000 mg tablet 500 mg PO DAILY omeprazole 20 mg capsule,delayed release(DR/EC) 20 mg PO DAILY lisinopril 40 mg tablet 40 mg PO DAILY metoprolol succinate 25 mg tablet extended release 24 hr 25 mg PO DAILY rosuvastatin 40 mg tablet 40 mg PO DAILY coenzyme Q10 [Co Q-10] 100 mg capsule 100 mg PO DAILY tumeric 1 tab PO DAILY [facility] 40-10-5-3.3 mg tablet 1 tab PO DAILY clopidogrel [Plavix] 75 mg tablet 75 mg PO DIRECTED Qty: 90 3RF Rx Instructions: Take 600mg (8tabs) one time and then take 75mg (1 tab) daily. Discharge Orders: Discharge Order (Routine); Ordered 05/17/23 Ordered By: William Ryder Referrals: Radha Sebastian FNP [Nurse Practitioner] - 05/23/23 9:30 am Diet: Cardiac Activity: Limit activity as instructed Patient Instructions: Coronary Angioplasty (DC), Heart Healthy Diet (DC), Coronary Intravascular Stent Placement (DC), Chest Pain Stoplight, Post Angiogram Home Care Instructions Discharge Date/Time: 05/17/23 09:59 Discharge Attestations Time Spent in Discharge Care*: less than 30 min Quality Metrics Clinical Quality Measures [ No reported AMI, CVA or VTE this stay] Coding Level of Care Code Acute Code for Chg Fwd Diagnoses
[2023-05-17] MEDS: lisinopril 20 mg Tablet 40 MG PO (09:03)
[2023-05-17] MEDS: aspirin 81 mg EC Tablet PO (09:03)
[2023-05-17] MEDS: clopidogrel 75 mg Tablet PO (09:03)
[2023-05-17] MEDS: metoprolol succinate ER (24 HR) 25 mg Tablet PO (09:03)
[2023-05-17] MEDS: atorvastatin 40 mg Tablet 80 MG PO (09:03)
--- NOTE | 2023-05-17 09:51 | PC.NURSE ---
Discharge: With at bedside Patient given extensive verbal as well as written education on post angioplasty, heart healthy diet, stent placement, cardiac stoplight, and home instructions as well as when to call 911/ S/S of heart attack. Patient states he does have home medications available at to take home as scheduled. Patient verbalized understanding of education and verified by teach back. 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
== END 2023-05-17 09:59 | disposition home or self-care (01) ==
LOC: CCL 08:52 → ICU 12:04
PROVIDERS: PCP Nurse Practitioner Family; Visit Provider Internal Medicine
DX: I25.10 Atherosclerotic heart disease of native coronary artery without angina pectoris (principal); Z95.1 Presence of aortocoronary bypass graft; I10 Essential (primary) hypertension; E78.5 Hyperlipidemia, unspecified; E66.9 Obesity, unspecified; Z68.29 Body mass index [BMI] 29.0-29.9, adult; K21.9 Gastro-esophageal reflux disease without esophagitis; F17.210 Nicotine dependence, cigarettes, uncomplicated
CPT/HCPCS: 36415; 51702; 80048; 85025; 85347; 85730; 92978; 93458; 96361; 96365; 99152; 99153; C1725; C1753; C1769; C1874; C1887; C1894; C9600; C9601; J0360; J1644; J2250; J3010; J3490; J7030; Q0163; Q9967

== ENCOUNTER → 2023-05-23 09:00 | Outpatient (BNVA) | payer MEDICARE, SELFPAY | PROVIDERS: PCP Nurse Practitioner Family; Visit Provider Nurse Practitioner Family | DX: I25.10 Atherosclerotic heart disease of native coronary artery without angina pectoris (principal); F17.210 Nicotine dependence, cigarettes, uncomplicated; I10 Essential (primary) hypertension | CPT/HCPCS: 36415; 80048; 99214 ==

== ENCOUNTER → 2023-09-05 14:08 | Outpatient (BNVA) | payer MEDICARE, SELFPAY | PROVIDERS: PCP Nurse Practitioner Family; Visit Provider Internal Medicine | DX: I25.10 Atherosclerotic heart disease of native coronary artery without angina pectoris (principal); I10 Essential (primary) hypertension; Z86.74 Personal history of sudden cardiac arrest; E78.5 Hyperlipidemia, unspecified; K21.9 Gastro-esophageal reflux disease without esophagitis; F17.210 Nicotine dependence, cigarettes, uncomplicated | CPT/HCPCS: 99214 ==

== ENCOUNTER 2023-09-19 16:20 | Emergency (ER) | payer MEDICARE, SELFPAY ==
[2023-09-19] VITALS (9 sets, daily range): BP systolic 103–143; BP diastolic 58–93; PULSE 66–155; RESP 10–17; TEMP 36.9; O2SAT 93–100
--- NOTE | 2023-09-19 16:23 | ECG_ITS ---
[facility] Test Date: 2023-09-19 Pat Name: Claudio Mota Department: Room: Gender: Male Access Services Assistant: : [id number] Requested By: Erasto Spencer Order Number: [id number] Mitch MD: Gerson Key M.D. Measurements Intervals [place] Rate: 117 P: 0 [place]: 0 QRS: 34 QRSD: 157 T: 65 QT: 333 QTc: 465 Interpretive Statements ATRIAL FIBRILLATION WITH RAPID VENTRICULAR RESPONSE WITH ABERRANT CONDUCTION OR VENTRICULAR PREMATURE COMPLEXES INTRAVENTRICULAR CONDUCTION DELAY [130+ ms QRS DURATION] Compared to ECG 01/30/2023 09:42:48 Aberrant conduction of supraventricular beat(s) now present Ventricular premature complex(es) now present Intraventricular conduction delay now present Sinus rhythm no longer present ST (T wave) deviation no longer present Electronically Signed On 09-19-2023 20:06:35 COIN MACHINE OPERATOR by Gerson Key M.D. [id number]
--- NOTE | 2023-09-19 16:28 | XR_ITS ---
WS: [id number] Examination: XR chest 1V portable [id number] Reason for Exam: dyspnea, tachycardia Date: 09/19/2023 Comparison: None. Findings: The heart is enlarged. Sternal wires are in place. There is no pulmonary edema or large pleural effusion. There is no dense consolidation. A right midlung nodule and possibly a left upper to mid lung nodule are noted. Granulomatous changes could have this appearance. There is a metallic foreign body projected over the left shoulder Impression: There is cardiomegaly without failure. Lung nodules are suspected. These may represent granuloma. If previous old studies are available for comparison this would be of benefit. If old films are not available for comparison CT is recommended for further evaluation..
--- NOTE | 2023-09-19 16:35 | ED_ITS ---
HPI - Chest Pain 2 General: Chief Complaint: Chest Pain Stated Complaint: chest pain, sob Time Seen by Provider: 09/19/23 16:28 History of Present Illness: Patient presents to the ER with complaints of chest pain, tachycardia, shortness of breath, patient's stated this all started about an hour to an hour and a half ago patient had some left-sided chest pain that radiated up into his jaw and also down his left shoulder region. Patient does have a history of coronary artery disease with multiple stents and a least a one-vessel bypass. Patient sees Dr. Ryder. Patient is currently on Plavix and 81 mg aspirin. Patient did take nitro prior to arrival which did appear to help. Upon arrival in ER patient's heart rate is 155 bpm and irregular. EKG showed A-fib with RVR. Patient does not have a history of A-fib. 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 Hypertension Vocal cord paralysis Hyperlipidemia GERD (gastroesophageal reflux disease) H/O sudden cardiac successfully resuscitated 2010 Surgical History History of open heart surgery Hx of tonsillectomy History of foot surgery History of back surgery Family History Mother Cancer colon Heart disease Myocardial infarction Hypertension Diabetes Brother Myocardial infarction Hypertension Diabetes Social History Smoking and tobacco/nicotine status: current every day tobacco/nicotine user cigarettes Packs smoked per day: 1 Years cigarettes smoked: 42 Alcohol intake: former Year of sobriety/quit date alcohol: 2 Substance/Drug Use: former Household members: spouse Marital status: Current occupational status: disabled Current gender identity: Male Special noelle needs: No Physical Exam 2 Const: COMMON NORMALS: no acute distress, average body habitus, patient oriented x3, no limitations, healthy appearing, alert and well nourished HENMT: COMMON NORMALS: normocephalic, atraumatic, hearing grossly normal bilaterally, external ears normal, Normal external nose present, moist oral mucous membranes and oropharynx normal HEAD & SCALP: normocephalic and atraumatic NOSE: Normal external nose present EXTERNAL EAR: Yes external ears normal Neck/C-Spine: COMMON NORMALS: full ROM, no lymphadenopathy, supple, no meningeal signs, no JVD and Thyroid normal THYROID: Thyroid normal Chest: COMMONS NORMALS: normal inspection of the chest and normal palpation of entire chest wall Resp: COMMON NORMALS: normal respiratory effort, No retractions, No use of accessory muscles and clear to auscultation bilaterally AUSCULTATION: clear to auscultation bilaterally Cardio: COMMON NORMALS: no JVD, S1 normal heart sound present, S2 normal heart sound present, No gallops present (Cardio), No murmurs present (Cardio) and No rub (Cardio); negative for regular rate (Tachycardic) and negative for regular rhythm (Irregularly irregular) RATE: abnormal rate (Tachycardic) RHYTHM: abnormal rhythm (Irregularly irregular) HEART SOUNDS: S1 normal heart sound present and S2 normal heart sound present GI: COMMON NORMALS: Normal to inspection, nondistended, normoactive bowel sounds present, Soft to palpation, non-tender, No hepatosplenomegaly present and no masses PALPATION: Yes Soft to palpation and Yes No hepatosplenomegaly present Neuro: COMMON NORMALS: patient oriented x3 SENSORIUM/ORIENTATION: Yes alert MENINGEAL SIGNS: Yes no meningeal signs Course 2 Vital Signs: Vital signs: Vital Signs Temperature 98.4 F 09/19/23 16:33 Pulse Rate 155 H 09/19/23 16:33 Respiratory Rate 16 09/19/23 16:33 Blood Pressure 140/90 09/19/23 16:33 Pulse Oximetry 98 09/19/23 16:33 MDM - Chest Pain Medical Decision Making Patient presents to the ER with a heart rate of 155 beats a minute. This was A- fib with RVR. Patient was given 20 mg Cardizem IV, 4 mg morphine, 4 mg of Zofran this converted him into normal sinus rhythm and stopped his chest pain. Lab work was obtained which showed elevated white count of 15, initial troponin was 134, 2-hour troponin was 438 for delta of approximately 304. EKGs was obtained pre and post Cardizem. These findings was discussed with the patient and I highly recommended admission for observation and serial troponins EKGs and possible cardiology consult in the morning. Patient however did not like this at all and said there is no way he is staying. He said he would come back tomorrow for repeat blood work. I had a long discussion about how this is not how it worked and still suggested that he stay due to the risk of worsening troponin, acute IN, cardiac debility including . Patient stated he understood and took the risks upon himself and still wanted to leave AMA. Differential Diagnosis Unlikely acute massive pulmonary embolism, acute respiratory failure, acute myocardial infarction, cardiac arrest or sudden cardiac Medical Records I reviewed the patient's medical records. Lab Data I reviewed the patient's lab results. 09/19/23 16:35 09/19/23 16:35 Laboratory Results WBC 15.72 10^3/uL (3.29-11.43) H 09/19/23 16:35 RBC 5.26 10^6/uL (3.85-5.65) 09/19/23 16:35 Hgb 16.00 g/dL (11.27-16.99) 09/19/23 16:35 Hct 45.7 % (37-53) 09/19/23 16:35 MCV 86.9 fl (82-101) 09/19/23 16:35 MCH 30.4 pg (27-33) 09/19/23 16:35 MCHC 35.0 g/dL (30-55) 09/19/23 16:35 RDW 12.1 % (12.1-15.1) 09/19/23 16:35 Plt Count 173 10^3/cmm (157-399) 09/19/23 16:35 MPV 10.6 fL (7.4-10.4) H 09/19/23 16:35 Neut % (Auto) 70.9 % 09/19/23 16:35 Lymph % (Auto) 17.6 % 09/19/23 16:35 Foster % (Auto) 8.2 % 09/19/23 16:35 Eos % (Auto) 1.5 % 09/19/23 16:35 Baso % (Auto) 1.1 % 09/19/23 16:35 Neut # (Auto) 11.13 10^3/uL (1.8-7.7) H 09/19/23 16:35 Lymph # (Auto) 2.8 10^3/uL (0.8-4.8) 09/19/23 16:35 Foster # (Auto) 1.3 10^3/uL (0.2-0.9) H 09/19/23 16:35 Eos # (Auto) 0.2 10^3/uL (0.0-0.8) 09/19/23 16:35 Baso # (Auto) 0.2 10^3/uL (0.0-0.1) H 09/19/23 16:35 Nucleated RBC % (auto) 0 % 09/19/23 16:35 Nucleated RBCs # 0.0 /100WBC 09/19/23 16:35 PT 12.50 SECONDS (12.1-14.9) 09/19/23 16:35 INR 0.91 (0.8-1.2) 09/19/23 16:35 Sodium 137 mmol/L (136-145) 09/19/23 16:35 Potassium 4.3 mmol/L (3.5-5.1) 09/19/23 16:35 Chloride 101 mmol/L (98-107) 09/19/23 16:35 Carbon Dioxide 24 mmol/L (22-29) 09/19/23 16:35 Anion Gap 16.3 (5-19) 09/19/23 16:35 BUN 12 mg/dL (6-20) 09/19/23 16:35 Creatinine 1.1 mg/dL (0.7-1.2) 09/19/23 16:35 GFR Calculation 69.2 mL/min (90-130) L 09/19/23 16:35 Glucose 102 mg/dL (65-115) 09/19/23 16:35 Calculated Osmolality 284 mOsm/kg (285-295) L 09/19/23 16:35 Calcium 9.2 mg/dL (8.5-10.5) 09/19/23 16:35 Magnesium 1.8 mg/dL (1.7-2.3) 09/19/23 16:35 Total Bilirubin 0.3 mg/dL (0.15-1.2) 09/19/23 16:35 AST 22 U/L (0-40) 09/19/23 16:35 ALT 18 U/L (0-41) 09/19/23 16:35 Alkaline Phosphatase 75 U/L (40-130) 09/19/23 16:35 Troponin T Baseline 134 ng/L (0-15) H* 09/19/23 16:35 Troponin T 120 Minute 438.5 ng/L (0-15) H 09/19/23 18:54 Delta Troponin T 304.5 ABS# (0-10) H* 09/19/23 18:54 NT-Pro-B Natriuret Pep 868 pg/mL (0-125) H 09/19/23 16:35 Total Protein 7.5 g/dL (6.6-8.7) 09/19/23 16:35 Albumin 4.7 g/dL (3.5-5.2) 09/19/23 16:35 Globulin 2.8 g/dL (1.3-4.6) 09/19/23 16:35 TSH 2.43 uIU/mL (0.27-4.20) 09/19/23 16:35 All radiology interpretation(s) finalized by discharge EKG Data EKG 1: I personally reviewed and interpreted this EKG as follows: EKG interpretation date: 09/19/23 EKG interpretation time: 16:23 Prior EKG tracings: not available for review Interpretation: Ventricular rate 117 beats minute, QRS duration 157, QTc of 402, A-fib with RVR with aberrant conduction. Discharge Plan Discharge Patient Disposition: Left Against Medical Advice Clinical Impression: Paroxysmal atrial fibrillation with RVR, Elevated troponin Condition: Stable Prescriptions: No Action nitroglycerin 0.4 mg tablet, sublingual 0.4 mg sublingual Q5M PRN (Reason: chest pain) Qty: 30 3RF Rx Instructions: do not exceed 3 doses per episode aspirin [Enteric Coated Aspirin] 81 mg tablet,delayed release (DR/EC) 81 mg PO DAILY omeprazole 20 mg capsule,delayed release(DR/EC) 20 mg PO DAILY lisinopril 40 mg tablet 40 mg PO DAILY metoprolol succinate 25 mg tablet extended release 24 hr 25 mg PO DAILY rosuvastatin 40 mg tablet 40 mg PO DAILY coenzyme Q10 [Co Q-10] 100 mg capsule 100 mg PO DAILY clopidogrel [Plavix] 75 mg tablet 75 mg PO DIRECTED Qty: 90 3RF Rx Instructions: Take 600mg (8tabs) one time and then take 75mg (1 tab) daily. Referrals: Opal Castro FNP [Primary Care Provider] - 1-3 days Patient Instructions: Against Medical Advice (ED), A-fib (Atrial Fibrillation) (ED), High Troponin Levels (ED) Activity Restrictions/Additional Instructions: You presented to the ER with a fast heart rate called atrial fibrillation with rapid ventricular response. This puts you at a higher risk for strokes and heart attacks. You are given Cardizem which converted your heart rate back to normal sinus rhythm. Your heart enzyme called troponin was elevated initially and significantly elevated at the 2-hour recheck. It is highly suggested that you stay overnight for further evaluation and treatment. You are unable to be convinced to do this. Leaving the hospital may put you at a higher risk for heart damage, cardiac debility, strokes, heart attacks and even . If you change your mind please feel free to return to the ER especially if any of your symptoms return or worsen. Otherwise follow-up with your family practice physician as soon as possible for further evaluation and testing. Coding Level of Care Code ED Intermediate Teacher for Harley Garcia
[2023-09-19] MEDS: morphine 4 mg/mL SDV 1 mL IVP (16:44)
[2023-09-19] MEDS: dilTIAZem 5 mg/mL SDV 5 mL 20 MG IVP (16:44)
[2023-09-19] MEDS: ondansetron 2 mg/ML SDV 2 mL 4 MG IVP (16:44)
[2023-09-19 16:58] LABS: Basophils # 0.2 10^3/uL (0.0-0.1); Basophils % 1.1 %; Eosinophils # 0.2 10^3/uL (0.0-0.8); Eosinophils % 1.5 %; Hematocrit 45.7 % (37-53); Lymphocytes # 2.8 10^3/uL (0.8-4.8); Lymphocytes % 17.6 %; Mean Corpuscular Hemoglobin 30.4 pg (27-33); Mean Corpuscular Volume 86.9 fl (82-101); Mean Platelet Volume 10.6 fL (7.4-10.4); Monocytes # 1.3 10^3/uL (0.2-0.9); Monocytes % 8.2 %; Neutrophils # 11.13 10^3/uL (1.8-7.7); Neutrophils % 70.9 %; Nucleated Red Blood Cells % 0 %; Platelet Count 173 10^3/cmm (157-399); Red Blood Count 5.26 10^6/uL (3.85-5.65); Red Cell Distribution Width 12.1 % (12.1-15.1); White Blood Count 15.72 10^3/uL (3.29-11.43)
[2023-09-19 17:07] LABS: INR 0.91 (0.8-1.2)
[2023-09-19 17:25] LABS: Troponin(5th) Baseline 134 ng/L (0-15)
[2023-09-19 17:33] LABS: Alanine Aminotransferase 18 U/L (0-41); Albumin Level 4.7 g/dL (3.5-5.2); Alkaline Phosphatase 75 U/L (40-130); Anion Gap 16.3 (5-19); Aspartate Amino Transferase 22 U/L (0-40); Blood Urea Nitrogen 12 mg/dL (6-20); Calcium 9.2 mg/dL (8.5-10.5); Carbon Dioxide 24 mmol/L (22-29); Chloride 101 mmol/L (98-107); Globulin 2.8 g/dL (1.3-4.6); Glomerular Filtration Rate 69.2 mL/min (90-130); Glucose 102 mg/dL (65-115); Magnesium 1.8 mg/dL (1.7-2.3); NT Pro B Type Natriuretic Pept 868 pg/mL (0-125); Osmolality Calculated 284 mOsm/kg (285-295); Potassium 4.3 mmol/L (3.5-5.1); Sodium 137 mmol/L (136-145); Thyroid Stimulating Hormone 2.43 uIU/mL (0.27-4.20); Total Bilirubin 0.3 mg/dL (0.15-1.2); Total Protein 7.5 g/dL (6.6-8.7)
--- NOTE | 2023-09-19 18:28 | ECG_ITS ---
[facility] Test Date: 2023-09-19 Pat Name: Claudio Mota Department: Room: Gender: Male [employer]ognos Developer: : 1965 Requested By: Erasto Spencer Order Number: [id number] Mitch MD: Gerson Key M.D. Measurements Intervals [place] Rate: 74 P: 46 [place]: 172 QRS: 3 QRSD: 108 T: 129 QT: 404 QTc: 448 Interpretive Statements SINUS RHYTHM POSSIBLE LEFT ATRIAL ENLARGEMENT [-0.1mV P-WAVE IN V1/V2] ST DEVIATION AND MODERATE T-WAVE ABNORMALITY, CONSIDER LATERAL ISCHEMIA [-0.1+ mV T-WAVE IN I/aVL/V5/V6] Compared to ECG 09/19/2023 16:23:21 T-wave abnormality now present Possible ischemia now present Atrial fibrillation no longer present Aberrant conduction of supraventricular beat(s) no longer present Ventricular premature complex(es) no longer present Intraventricular conduction delay no longer present Electronically Signed On 09-19-2023 20:25:26 PLUMBER APPRENTICE by Gerson Key M.D. [id number]
[2023-09-19 19:44] LABS: Troponin 5 2HR 438.5 ng/L (0-15); Troponin 5 2HR Delta 304.5 ABS# (0-10)
== END 2023-09-19 20:08 | disposition left against medical advice (07) ==
PROVIDERS: Emergency Provider Emergency Medicine; PCP Nurse Practitioner Family
DX: I48.20 Chronic atrial fibrillation, unspecified (principal); R79.89 Other specified abnormal findings of blood chemistry; Z79.02 Long term (current) use of antithrombotics/antiplatelets; Z79.82 Long term (current) use of aspirin; F17.210 Nicotine dependence, cigarettes, uncomplicated; I25.10 Atherosclerotic heart disease of native coronary artery without angina pectoris; I10 Essential (primary) hypertension; E78.5 Hyperlipidemia, unspecified
CPT/HCPCS: 36415; 71045; 80053; 83735; 83880; 84443; 84484; 85025; 85610; 93005; 96374; 96375; 99285; J2270; J2405; J3490